=== PATIENT | male | born 1940 | race Caucasian/White ===

== ENCOUNTER → 2018-07-30 | Outpatient (REF) | payer OTHER ==
[~2018-07-30] MED LIST: ASPIRIN ADULT L81 MG PO; ASPIRIN EC81 MG PO; ATENOLOL25 MG PO; CIPROFLOXACN500 MG PO; FOLIC ACID1 MG PO; LEVAQUIN750 MG PO; PLAVIX75 MG PO
[2018-07-30 08:17] LABS: HEMATOCRIT 37.3 % (39.0-50.0); HEMOGLOBIN 12.7 g/dl (14.0-18.0); IMMATURE GRANULOCYTES 0.7 % (0.0-5.0); MEAN CELL VOLUME 99.5 fL CALC (80.0-100.0); MEAN CORPUSCULAR HGB 33.9 pG CALC (26.0-32.0); RED BLOOD COUNT 3.75 mill/uL (4.70-6.10); RED CELL DISTRI WIDTH 12.7 % (11.5-15.5)
== END | disposition home or self-care (01) | DRG 379 ==
LOC: LABSPEC 08:09
PROVIDERS: ATTEND Internal Medicine
DX: K62.5 Hemorrhage of anus and rectum (principal)

== ENCOUNTER 2019-05-07 19:17 | Inpatient (IN) | payer OTHER ==
[~2019-05-07] VITALS: Ht 172.7 cm; Wt 78.0 kg
--- NOTE | 2019-05-07 19:18 | NUR ---
BY EMS TO ROOM 10
--- NOTE | 2019-05-07 20:20 | NUR ---
TO CT VIA STRETCHER
[2019-05-07 20:25] LABS: HEMATOCRIT 34.6 % (39.0-50.0); MEAN CELL VOLUME 99.4 fL CALC (80.0-100.0); MEAN CORPUSCULAR HGB 31.6 pG CALC (26.0-32.0); MEAN CORPUSCULAR HGB CONC 31.8 g/L CALC (32.0-36.0); NEUT# 13.33 thou/uL (1.82-7.42); RED BLOOD COUNT 3.48 mill/uL (4.70-6.10); RED CELL DISTRI WIDTH 14.3 % (11.5-15.5)
[2019-05-07 20:44] LABS: ALKALINE PHOSPHATASE 79 u/l (38-126); ANION GAP 10 (6-22 (CALC)); BUN 34 mg/dL (8-23); BUN/CREATININE RATIO 55 (12-20 (CALC)); CARBON DIOXIDE 24 mmol/l (22-30); CHLORIDE 114 mmol/l (95-108); CREATININE 0.6 mg/dL (0.7-1.3); GFR > 60 ML/MIN (>=60 (CALC)); GFR FOR AFR.AMER. > 60 ML/MIN (>=60 (CALC)); LIPASE < 10 u/l (23-300); SGOT/AST 29 u/l (19-48); SODIUM 144 mmol/l (137-146)
[2019-05-07 20:50] LABS: INTERNATIONAL NORMALIZED RATIO 1.1 RATIO (0.7-1.3); PROTHROMBIN TIME 11.1 SECONDS (9.0-12.5)
--- NOTE | 2019-05-07 21:54 | NUR ---
4 ATTEMPTS AT EKG. EKG WITH POOR QUALITY - BASELINE ATIFACT NOTED. PT CONTRACTED
--- NOTE | 2019-05-07 22:26 | NUR ---
CARE ASSUMED FROM YVES. PT RESTING. ANTIBIOTICS INFUSING. O2 @ 4 LPM NC. ARRINGTON BEING INSERTEDY BY YVES RN. CM SR. VSS. GUARDS AT BEDSIDE.
--- NOTE | 2019-05-07 22:32 | NUR ---
OFFICERS AT BEDSIDE UPDATED WITH POC - PT ADMITTED
--- NOTE | 2019-05-07 22:45 | NUR ---
PT ARIVED TO THE FLOOR VIA STRETCHER, ACCOMPANIED BY ED STAFF AND X2 CUSTODY OFFICERS. PT TRANSFERED FROM STRETCHER TO BED X4 ASSIST. PT NONVERBAL UNABLE TO ANSWER QUESTIONS. RESPIRATIONS EVEN AND UNLABORED ON O2 @ 2L VIA NC. VS OBTAINED AND ASSESSMENT COMPLETED. LUNGS SOUND COURSE. PEDAL PULSES WEAK. #20LW PATENT AND APPEARS HEALTHY. #24 RFA REMOVED. BRUISE NOTED TO THE INNER RIGHT THIGH. SKIN IS INTACT. SAFETY PRECAUTIONS IN PLACE. WILL CONTINUE TO MONITOR.
--- NOTE | 2019-05-07 22:57 | NUR ---
REPORT TO FLOOR
[2019-05-07 23:04] LABS: URINE BILIRUBIN - DIPSTICK NEGATIVE (NEGATIVE); URINE BLOOD DIPSTICK LARGE (NEGATIVE); URINE COLOR YELLOW; URINE GLUCOSE - DIPSTICK NEGATIVE (NEGATIVE); URINE KETONE NEGATIVE (NEGATIVE); URINE PH 5.5 (4.5-8.0); URINE PROTEIN - DIPSTICK 30 mg/dL (NEG-TRACE); URINE SPECIFIC GRAVITY >=1.030
[2019-05-07 23:06] LABS: URINE LEUK ESTERASE MODERATE (NEGATIVE)
--- NOTE | 2019-05-07 23:12 | NUR ---
EN ROUTE TO FLOOR PT STARTED TO MOAN A LITTLE. GUARDS STATE THAT IS HOW HE USUALLY IS. HE IS NON-VERBAL OTHERWISE.
--- NOTE | 2019-05-07 23:12 | NUR ---
TO FLOOR VIA STRETCHER WITH VANCO IN HAND. O2 @ 4 CARD PROCESSING CLERK NC. ARRINGTON TO BEDSIDE. SMALL AMT OF URINE. POCKET MONITOR INTACT.
--- NOTE | 2019-05-07 23:12 | NUR ---
OFFICERS AT BEDSIDE. PT TRANSFERED TO BED UPON ARRIVAL. KEYONNAO GIVEN TO YO.
[2019-05-07 23:22] LABS: URINE NITRITE - DIPSTICK NEGATIVE (Negative)
[2019-05-07 23:30] VITALS: BP 122/61
[2019-05-07 23:39] LABS: URINE RBC 50-100 RBC/hpf (0-5); URINE WBC >100 WBC/hpf (0-5)
[2019-05-07 23:43] LABS: URINE BACTERIA MANY hpf; URINE EPITHELIAL CELLS FEW EPI/hpf (0-FEW)
--- NOTE | 2019-05-08 03:36 | NUR ---
PT RESTING IN BED. NO S/S OF DISTRESS AT THIS TIME. RESPIRATIONS EVEN AND UNLABORED ON 02 @ 2L VIA NC. SAFETY PRECAUTIONS IN PLACE. WILL CONTINUE TO MONITOR.
[2019-05-08 03:58] VITALS: BP 140/61
--- NOTE | 2019-05-08 06:19 | NUR ---
SPOKE WITH JUAN ANTONIO FROM [facility], GIVING HER A PT UPDATE.
--- NOTE | 2019-05-08 08:02 | NUR ---
PT IS NONVERBAL. PT BODY IS CONTRACTED. PT RESTING ON HIS LEFT SIDE. NO S/S OF DISTRESS NOTED. TELE IN PLACE. ARRINGTON IS PATENT WITH STEVE URINE. O2 AT 2L VIA NC. X2 GUARDS AT BEDSIDE. CALL LIGHT IN REACH.
[2019-05-08 08:04] VITALS: BP 167/73
[2019-05-08 10:35] VITALS: BP 142/72
--- NOTE | 2019-05-08 12:02 | NUR ---
[facility] NURSE FARA CALLED FOR A UPDATE RE: PT . ALSO, STATED THAT PT HAD A BM ON 06/06.
--- NOTE | 2019-05-08 12:13 | NUR ---
ED CALLED STATED TELE READING IS 130-140'S . IS RESTING IN BED WITH NO S/S OF DISTRESS NOTED. NOTIFIED TATIANA PENG RE: TELE READING. ORDERS RECEIVED.
[2019-05-08 13:26] VITALS: BP 104/61
--- NOTE | 2019-05-08 13:26 | NUR ---
ED CALLED TELE READING ST 140'S . VS OBTAIN. EKG DONE AND READING A.FIB . RT NOTIFIED TATIANA PENG RE: EKG.
[2019-05-08 15:10] VITALS: BP 117/68
--- NOTE | 2019-05-08 15:10 | NUR ---
Spoke with Nurse Amor at [facility] regarding inablility to reach pt daughter and POA to discuss pt plan of care. Nurse Amor states she would speak with her it systems administrator and get back with me.
--- NOTE | 2019-05-08 15:37 | NUR ---
Nurse Mt called back and stated that she spoke with her solaris administrator and per them we are to treat pt aggreesively with hopes to return him to [facility] but that his DNR stands.
--- NOTE | 2019-05-08 16:16 | NUR ---
MEDICATED PT WITH METOPROLOL FOR P-120. PT RESPS ARE SHALLOW. TELE IN PLACE. ORAL CARE DONE. MURPHY IS PATENT WITH STEVE URINE. X2 GUARDS IN ROOM. CALL LIGHT IN REACH.
--- NOTE | 2019-05-08 19:00 | NUR ---
REPORT RECEIVED FROM MITCH ASHLEY. PT RESTING IN BED. SAFETY PRECAUTIONS IN PLACE. WILL CONTINUE TO MONITOR.
--- NOTE | 2019-05-08 21:15 | NUR ---
PT RESTING IN BED. NONVERBAL. RESPIRATIONS SHALLOW ON O2 @ 2L VIA NC. #20 LW PATENT AND APPEARS HEALTHY. TELE IN PLACE. SENIOR UI WEB DEVELOPER X2 AT BEDSIDE. SAFETY PRECAUTIONS IN PLACE. WILL CONTINUE TO MONITOR.
--- NOTE | 2019-05-09 00:25 | NUR ---
PT RESTING IN BED, RESPIRATIONS SHALLOW ON O2 @ 2L VIA NC. TELE IN PLACE. SAFETY PRECAUTIONS IN PLACE. WILL CONTINUE TO MONITOR.
[2019-05-09 00:36] VITALS: BP 134/62
--- NOTE | 2019-05-09 04:11 | NUR ---
PT RESTING IN BED. NO S/S OF DISTRESS AT THIS TIME. ARRINGTON DRAINING TO GRAVITY. RESPIRATIONS SHALLOW. SAFETY PRECAUTIONS IN PLACE. WILL CONTINUE TO MONITOR.
[2019-05-09 05:18] LABS: HEMATOCRIT 32.2 % (39.0-50.0); HEMOGLOBIN 10.3 g/dl (14.0-18.0); IMMATURE GRANULOCYTES 1.3 % (0.0-5.0); MEAN CELL VOLUME 98.8 fL CALC (80.0-100.0); MEAN CORPUSCULAR HGB 31.6 pG CALC (26.0-32.0); NEUT# 11.73 thou/uL (1.82-7.42); RED BLOOD COUNT 3.26 mill/uL (4.70-6.10); RED CELL DISTRI WIDTH 14.1 % (11.5-15.5)
[2019-05-09 05:27] VITALS: BP 148/60
[2019-05-09 05:30] LABS: ANION GAP 9 (6-22 (CALC)); BUN 42 mg/dL (8-23); BUN/CREATININE RATIO 56 (12-20 (CALC)); CARBON DIOXIDE 24 mmol/l (22-30); CHLORIDE 119 mmol/l (95-108); CREATININE 0.8 mg/dL (0.7-1.3); GFR > 60 ML/MIN (>=60 (CALC)); GFR FOR AFR.AMER. > 60 ML/MIN (>=60 (CALC)); MAGNESIUM 2.4 mg/dL (1.6-2.3); POTASSIUM 3.4 mmol/l (3.5-5.1); SODIUM 149 mmol/l (137-146)
--- NOTE | 2019-05-09 07:00 | NUR ---
SHIFT CHANGE REPORT, PT SLEEPING IN LEFT SIDE-LYING POSITION, O2 @ 2L VIA NC IN PLACE, TELE MONITOR IN PLACE, IVF INFUSING, ARRINGTON CATHETER IN PLACE WITH CLEAR STEVE URINE, NO SIGN DISCOMFORT, GUARDS X 2 AT BEDSIDE, CALL GARCIA IN REACH.
[2019-05-09 07:50] VITALS: BP 143/64
--- NOTE | 2019-05-09 09:58 | NUR ---
NURSE MARGARETTE FROM [facility] CALLED TO INQUIRE ABOUT CONDITION AND PLAN, STATED SHE WANTS PT BACK SOON ABLE TO BE DISCHARGED, UPDATED INFORMATION FURNISHED, WILL CONTINUE TO MONITOR.
[2019-05-09 11:07] VITALS: BP 139/63
--- NOTE | 2019-05-09 16:00 | NUR ---
CONDITION REMAINS UNCHANGED, REPOSITIONED FREQUENTLY. NURSE MARGARETTE CALLED TO INQUIRE ABOUT D/C STATUS, INFORMATION FURNISHED
[2019-05-09 16:39] VITALS: BP 175/65
--- NOTE | 2019-05-09 18:29 | NUR ---
FUTILE ATTEMPTS TO REACH DAUGHTER JOSEY COOPER MADE, IT APPEARS THOUGH SOMEONE PICKED UP PHONE THEN HUNG UP WITHOUT ANSWERING EACH TIME.
[2019-05-09 19:00] VITALS: BP 160/68
--- NOTE | 2019-05-09 19:00 | NUR ---
REPORT RECEIVED FROM MITCH SANTIAGO, PT RESTING IN BED, NO S/S OF DISTRESS AT THIS TIME. SAFETY PRECAUTIONS IN PLACE. WILL CONTINUE TO MONITOR.
--- NOTE | 2019-05-09 21:15 | NUR ---
PT RESTING IN BED. RESPIRATIONS SHALLOW ON O2 @ 2L VIA NC. ARRINGTON DRAINING TO GRAVITY. # 22 RW PATENT AND APPEARS HEALTHY. TELE IN PLACE. JEFERSON X2 AT BEDSIDE. SAFETY PRECAUTIONS IN PLACE
[2019-05-10] VITALS (7 sets, daily range): BP systolic 98–168; BP diastolic 58–77
--- NOTE | 2019-05-10 | NUR ---
PT RESTING IN BED. PT REPOSITIONED AT THIS TIME. PT TOLERATED WELL. RESPIRATIONS SHALLOW ON O2 @ 2L VIA NC. TELE IN PLACE. ARRINGTON DRAINING TO GRAVITY. SAFETY PRECAUTIONS IN PLACE. WILL CONTINUE TO MONITOR.
--- NOTE | 2019-05-10 04:34 | NUR ---
PT RESTING IN BED RESPIRATIONS SHALLOW ON O2 @ 2L VIA NC. ARRINGTON DRAINING TO GRAVITY. SAFETY PRECAUTIONS IN PLACE. WILL CONTINUE TO MONITOR
[2019-05-10 05:37] LABS: HEMATOCRIT 32.2 % (39.0-50.0); HEMOGLOBIN 10.1 g/dl (14.0-18.0); IMMATURE GRANULOCYTES 3.7 % (0.0-5.0); MEAN CELL VOLUME 98.5 fL CALC (80.0-100.0); MEAN CORPUSCULAR HGB 30.9 pG CALC (26.0-32.0); MEAN CORPUSCULAR HGB CONC 31.4 g/L CALC (32.0-36.0); NEUT# 11.35 thou/uL (1.82-7.42); RED BLOOD COUNT 3.27 mill/uL (4.70-6.10); RED CELL DISTRI WIDTH 13.6 % (11.5-15.5)
[2019-05-10 05:56] LABS: ANION GAP 9 (6-22 (CALC)); BUN 34 mg/dL (8-23); BUN/CREATININE RATIO 50 (12-20 (CALC)); CARBON DIOXIDE 24 mmol/l (22-30); CHLORIDE 123 mmol/l (95-108); CREATININE 0.7 mg/dL (0.7-1.3); GFR > 60 ML/MIN (>=60 (CALC)); GFR FOR AFR.AMER. > 60 ML/MIN (>=60 (CALC)); POTASSIUM 3.2 mmol/l (3.5-5.1); SODIUM 152 mmol/l (137-146)
[2019-05-10 06:52] LABS: URINE BILIRUBIN - DIPSTICK NEGATIVE (NEGATIVE); URINE BLOOD DIPSTICK LARGE (NEGATIVE); URINE COLOR YELLOW; URINE GLUCOSE - DIPSTICK NEGATIVE (NEGATIVE); URINE KETONE 15 mg/dL (NEGATIVE); URINE LEUK ESTERASE TRACE (NEGATIVE); URINE PROTEIN - DIPSTICK 30 mg/dL (NEG-TRACE); URINE SPECIFIC GRAVITY 1.025
[2019-05-10 07:15] LABS: URINE EPITHELIAL CELLS MODERATE EPI/hpf (0-FEW); URINE NITRITE - DIPSTICK NEGATIVE (Negative); URINE RBC >100 RBC/hpf (0-5)
[2019-05-10 07:17] LABS: URINE BACTERIA MODERATE hpf
--- NOTE | 2019-05-10 08:03 | NUR ---
ASSESSMENT DONE. TELE IN PLACE. PT IS NON-VERBAL AT THIS TIME. PT IS RESTING IN HIS LEFT SIDE WITH NO S/S OF DISTRESS NOTED. IVF INFUSING WELL. ARRINGTON IS PATENT WITH STEVE URINE. O2 AT 2L VIA NC. MEDICATED PT WITH HYDRALAZINE FOR BP 168/77. CALL LIGHT IN REACH. X2 GAURDS IN ROOM.
--- NOTE | 2019-05-10 12:03 | NUR ---
PT IS SLEEPING IN BED WITH NO S/S OF DISTRESS NOTED. RESPS ARE SHALLOW. O2 AT 2L VIA NC. X2 GUARDS IN ROOM. CALL LIGHT IN REACH.
--- NOTE | 2019-05-10 13:24 | NUR ---
SPEECH THERAPY AT BEDSIDE TO ASSESS PT.
--- NOTE | 2019-05-10 13:38 | NUR ---
Pt is an 78 y.o. male referred for a Clinical Bedside Swallow Evaluation d/t concerns of aspiration. Pt w/PMHX of Advanced Dementia, Afib, and COPD, with new dx of UTI and Bibasilar PNA (per most recent CXR-05/2019). Pt presents with minimal responsiveness to cold bilabial/oral stimulus (ice cube); no reflex/response to even sternal rub. No gag reflex/swallow response, only minimal mandibular movement with continued ice stimuli to upper and lower (outside) lips. SAND BLASTER recommending continued NPO status d/t absent swallow reflex/ability to rouse, even with painful stimuli, and bibasilar infiltration per most recent CXR, indicating continued lung infiltration for an extended period of time (several weeks). Infiltration is most likely d/t PO intake and typical oral/nasal secretion(s). DIET: NPO/ Alternative Means of Nutrition per DNR restriction(s) AMPAC Score: 6
--- NOTE | 2019-05-10 16:30 | NUR ---
PT IS ON HIS RIGHT SIDE SLEEPING WITH NO S/S OF DISTRESS NOTED. CALL LIGHT IN REACH. X2 GUARDS IN ROOM.
--- NOTE | 2019-05-10 19:00 | NUR ---
RECEIVED REPORT FROM NURSE GABI, PATIENT RESTING IN BED, SWALLOW UNLABORED BREATHING ON O2 @ 2LPM VIA NC, CALL LIGHT AT REACH.
--- NOTE | 2019-05-10 21:00 | NUR ---
O2 CANULA CHANGE TO ADULT SIZE CANULA POX @ 93-94%.
--- NOTE | 2019-05-11 00:05 | NUR ---
PATIENT RESTING IN BED, EYES CLOSED, SHALLOW,UNLABORED BREATHING REMAINS ON O2 @ 2LPM VIA NC, GUARDSX2 IN ROOM.
--- NOTE | 2019-05-11 00:43 | NUR ---
INCREASED O2 @ 4LPM PATIENT POX BACK TO 93-94%, WILL CONTINUE TO MONITOR.
[2019-05-11 00:45] VITALS: BP 136/69
--- NOTE | 2019-05-11 01:22 | NUR ---
PATIENT TURNED AND REPOSITIONED, ORAL CARE PROVIDED.
--- NOTE | 2019-05-11 04:05 | NUR ---
PATIENT APPEARS TO BE SLEEPING WITH EYES CLOSED SHALLOW, UNLABORED RESPIRATION O2 @ 4LPM CALL LIGHT AT REACH.
[2019-05-11 04:11] VITALS: BP 153/73
[2019-05-11 07:47] VITALS: BP 130/89
--- NOTE | 2019-05-11 08:09 | NUR ---
FOOD MIXER DID ORAL CARE ON PT. PT IS RESTING ON HIS RIGHT SIDE. ASSESSMENT DONE. PT IS NONVERBAL. NO S/S OF DISTRESS NOTED. IVF INFUSING WELL. ARRINGTON IS PATENT WITH STEVE URINE. 02 4L VIA NC. X2 GAURDS AT BEDSIDE. CALL LIGHT IN REACH.
--- NOTE | 2019-05-11 12:50 | NUR ---
PT IS SLEEPING WITH NO S/S OF DISTRESS NOTED. X2 GUARDS IN ROOM. CALL LIGHT IN REACH.
--- NOTE | 2019-05-11 15:00 | NUR ---
Discharge instructions given TO GUARDS. Discharged in stable condition via RECLINER to *Other with X2 GUARDS All belongings sent with pt. REPORT GIVEN TO LAMOR NURSE.
== END 2019-05-11 15:00 | disposition hospice, home (50) | DRG 177 ==
LOC: ED 19:17 → ED-I 21:48 → ED 22:01 → MS2 22:02
PROVIDERS: Emergency Medicine; Nurse Practitioner Family; ADMIT Internal Medicine; ATTEND Internal Medicine
PROC: 0T9B70Z Drainage of Bladder with Drainage Device, Via Natural or Artificial Opening (ICD-10-PCS; principal; 2019-05-07)
DX: J69.0 Pneumonitis due to inhalation of food and vomit (principal); G93.41 Metabolic encephalopathy; N39.0 Urinary tract infection, site not specified; J44.9 Chronic obstructive pulmonary disease, unspecified; F03.90 Unspecified dementia, unspecified severity, without behavioral disturbance, psychotic disturbance, mood disturbance, and anxiety; I48.91 Unspecified atrial fibrillation; R62.7 Adult failure to thrive; S30.1XXA Contusion of abdominal wall, initial encounter; X58.XXXA Exposure to other specified factors, initial encounter; Z51.5 Encounter for palliative care; Z66 Do not resuscitate; Z74.01 Bed confinement status; Z79.02 Long term (current) use of antithrombotics/antiplatelets; Z68.26 Body mass index [BMI] 26.0-26.9, adult